=== PATIENT | female | born 1950 | race Caucasian/White ===

== ENCOUNTER 2025-03-19 12:50 | Emergency (ER) | payer MEDICARE, OTHER ==
[2025-03-19 13:23] LABS: MEAN PLATELET VOLUME 7.3 fL (7.1-12.4); PLATELET COUNT,PLT 506 x10(3)uL (151-488); RED BLOOD CELL COUNT 4.24 x10(6)uL (3.60-5.20); RED CELL DISTRIBUTION WIDTH 27.2 % (12.3-16.5); WHITE BLOOD CELL COUNT,WBC 21.4 x10-3/uL (3.0-10.3)
[2025-03-19 13:30] LABS: BLOOD UREA NITROGEN,BUN 49 mg/dL (7-18); CARBON DIOXIDE,CO2 24 mmol/L (21-32); CHLORIDE,CL 96 mmol/L (100-110); CREATININE 1.9 mg/dL (0.55-1.02); ESTIMATED GFR 27 mL/min (>60); GLUCOSE RANDOM 116 mg/dL (80-116); POTASSIUM,K 3.1 mmol/L (3.5-5.3); SODIUM,NA 132 mmol/L (135-145)
[2025-03-19 13:36] LABS: A/G RATIO 0.5; ALANINE AMINOTRANSFERASE,ALT 39 U/L (12-36); ASPARTATE AMNIOTRANSFERASE,AST 42 IU/L (5-25); BILIRUBIN TOTAL 1.1 mg/dL (0.1-1.3); PROTEIN TOTAL,TP 6.4 g/dL (6.0-8.0)
[2025-03-19 13:40] LABS: LACTIC ACID 1.4 mmol/L (0.4-2.0)
[2025-03-19 13:50] LABS: LYMPHOCYTES PERCENT MAN 1 % (13-37); MONOCYTES PERCENT MAN 6 % (4-12); SEG NEUTROPHILS PERCENT MAN 93 % (46-82)
[2025-03-19 14:31] LABS: GLUCOSE,URINE NORMAL (NORMAL); OCCULT BLOOD,URINE NEGATIVE (NEGATIVE)
[2025-03-19 14:32] LABS: APPEARANCE,URINE CLEAR (CLEAR)
== END 2025-03-19 17:50 | disposition home or self-care (01) ==
LOC: FB.ED 12:50
DX: E87.6 Hypokalemia (principal); E87.1 Hypo-osmolality and hyponatremia; J90 Pleural effusion, not elsewhere classified; R16.0 Hepatomegaly, not elsewhere classified; R91.1 Solitary pulmonary nodule; Z79.01 Long term (current) use of anticoagulants; Z79.899 Other long term (current) drug therapy
CPT/HCPCS: 71250; 74176; 80053; 81003; 83605; 85025; 86140; 96360; 99284; 99285; J7030